=== PATIENT | male | born 1945 | race Caucasian/White ===

== ENCOUNTER 2017-04-26 05:59 | Day surgery (SDC) | payer MEDICARE, OTHER ==
[~2017-04-26] VITALS: Ht 193 cm; Wt 113.4 kg
--- NOTE | ~2017-04-26 | OP ---
Record Of Operation [facility] [address] [place]. [address] NAME: JUAN CADENA : 45 STATUS : [facility]#: [id number] AGE: 71 ADM/REG DATE : 04/26/17 MR#: [id number] REPORT SERV DATE: 04/26/17 DICTATED BY: LEI CASTANEDA DATE: 04/26/17 REPORT STATUS : Draft TRANSCRIBED BY: MODSanjiv DATE: 04/26/17 DATE OF PROCEDURE: 04/26/2017 PROCEDURE: Right upper extremity brachiocephalic arteriovenous fistula creation. PREOPERATIVE DIAGNOSIS: End-stage renal disease. POSTOPERATIVE DIAGNOSIS: End-stage renal disease. INDICATIONS FOR PROCEDURE: This is a very pleasant 71-year-old gentleman who presents with end-stage renal disease. He previously had a fistula on the left upper extremity. 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 The recommendation was made for creation of right upper extremity arteriovenous fistula and the procedure, risks, benefits, alternatives, and indications were discussed extensively with the patient. All questions were answered. Consent was signed and placed in the chart. DESCRIPTION OF PROCEDURE IN DETAIL: On 04/26/2017, the patient was taken to the operating theater and placed in supine position on the operating table. After the uneventful induction of monitored conscious analgesia, the right upper extremity was prepped and draped in the usual sterile fashion. A time-out was performed to identify the patient and proposed procedure to be performed. The entirety of the staff agreed and agreed to the proceed with the operation. An incision was made just above the antecubital fossa and carried down with electrocautery. The cephalic vein was identified and dissected free circumferentially, proximally, and distally. It was transected distally, and the distal portion was suture ligated and a clip was placed on it as well. The vein was injected with heparinized saline and mobilized medially. The patient was systemically heparinized. The brachial artery was dissected free proximally and distally and the vein was mobilized medially. The artery was controlled and longitudinal arteriotomy was made measuring approximately 4 mm in length. An end-to-side anastomosis was created with running 6-0 Prolene suture. This was allowed to flush prior to completion, and after completion, there was an excellent throw within the system. Hemostasis was achieved. The patient had biphasic radial signal as well. At this juncture, the deep dermis was closed with a running 3-0 Vicryl suture and the skin was closed with a running 4-0 Monocryl suture. Dermabond was applied over this. The patient was awakened from monitored conscious analgesia and taken to PACU in stable condition. There were no apparent intraoperative complications. The patient tolerated the procedure well. All counts were correct at the conclusion of the operation. Of note, 10 mL of Lidocaine was injected into the field during the operation. [facility]/MARIO ALBERTO Lei Castaneda DO / [id number] Record Of [address] [address] NAME: JUAN CADENA : 45 STATUS : [facility] PAT#: [id number] AGE: 71 ADM/REG DATE : 04/26/17 MR#: [id number] REPORT SERV DATE: 04/26/17 DICTATED BY: LEI CASTANEDA DATE: 04/26/17 REPORT STATUS : Draft TRANSCRIBED BY: MARIO ALBERTO DATE: 04/26/17 CC: DO KAMLESH Zhao TIUNDRA LESHAUN
[~2017-04-26 05:59] MED LIST: 8 HOUR650 MG PO; ALEVE220 MG PO; AMB10 PO; APRES25 PO; ASAB PO; CINNAMONPO PO; CIPRO; COREG3 PO; COZAAR100 MG PO; DSS PO; EFFEXXR75 PO; FERROUS SULF325 M1 PO; FIBERCON PO; FISH-EPA1000 MG PO; FLOMAX4 PO; FOSRENOL PO; GAS-X80 MG PO; HEPARIN INJ5000 U/ML SQ; HYT2 PO; L40 PO; LEVEMFLXPN SC; LEVEMIR SC; LIPITOR40 PO; LOVAZA1 GM PO; LYRICA50 PO; MAALOX PO; MAGOX4 PO; METANX PO; MIRALAXPKT PO; NEUR100 PO; NOVOLOG SC; PCET PO; PHILLIPS M800 MG/5 M PO; PHOSLO PO; PLAVIX PO; PLETAL50 PO; POTASSIUM; PRILOSEC40 MG PO; PROAMAT5 PO; PROBIOTIC PO; PROTONIX PO; RENAGEL800 PO; ROCALTROL 0.0.25 MCG PO; SENSIPAR30 MG PO; SODBICAR10 PO; STARLIX120 PO; TRAZ100 PO; TYLENOL ARTH650 MG PO; VYTORIN 10/40 T1 TAB PO; Z100 PO
[2017-04-26 06:46] LABS: BASOPHILS 0.7 %; BASOPHILS ABSOLUTE 0.07 10/3/uL (0.0-0.16); EOSINOPHILS 4.6 %; EOSINOPHILS ABSOLUTE 0.47 10/3/uL (0.0-0.53); HEMOGLOBIN 10.9 g/dL (13.6-17.8); IMMATURE GRANULOCYTES 0.2 %; IMMATURE GRANULOCYTES ABSOLUTE 0.02 10/3/uL (0.0-0.11); LYMPHOCYTES 19.4 %; LYMPHOCYTES ABSOLUTE 1.96 10/3/uL (0.67-4.30); MEAN PLATELET VOLUME 10.7 fL (9.2-13.0); MONOCYTES 10.1 %; MONOCYTES ABSOLUTE 1.02 10/3/uL (0.21-1.20); NEUTROPHILS ABSOLUTE 6.58 10/3/uL (2.02-8.40); RBC DISTRIBUTION WIDTH 16.8 % (12.0-16.0); RED CELL COUNT 3.44 10/6/uL (4.7-6.1); WHITE BLOOD CELLS 10.1 10/3/uL (4.5-10.5)
[2017-04-26 06:49] LABS: MANUAL DIFF NO %; MEAN CORPUS HGB CONC 32.1 g/dL (32.0-36.0); MEAN CORPUSCULAR HEMOGLOB 31.7 pg (26.0-34.0); MEAN CORPUSCULAR VOLUME 98.8 fL (80-100); PLATELET COUNT 218 10/3/uL (150-400)
[2017-04-26 06:53] LABS: INTERNATIONAL NORMAL RATI 1.2 UNITS (-); PROTIME (NOT ORD) 15.1 SEC (12.0-14.5)
[2017-04-26 06:59] LABS: BUN (BLOOD UREA NITROGEN) 49 MG/DL (6-23); CALCIUM, SERUM 7.3 MG/DL (8.5-10.4); CHLORIDE, SERUM 102 MMOL/L (96-112); CO2 (CARBON DIOXIDE) 24 MMOL/L (24-34); CREATININE 7.26 MG/DL (0.70-1.30); GFR AFRICAN AMERICAN 8 ML/MIN (>=60); GFR NON AFRICAN AMERICAN 7 ML/MIN (>=60); GLUCOSE, SERUM 150 MG/DL (60-99); POTASSIUM, SERUM 4.8 MMOL/L (3.5-5.3); SODIUM, SERUM 139 MMOL/L (135-148)
== END 2017-04-26 16:30 | disposition home or self-care (01) ==
LOC: SDC 05:59
PROVIDERS: Surgery Vascular Surgery
PROC: 03170ZD Bypass Right Brachial Artery to Upper Arm Vein, Open Approach (ICD-10-PCS; principal; 2017-04-26 07:45)
DX: E11.22 Type 2 diabetes mellitus with diabetic chronic kidney disease (principal); N18.6 End stage renal disease; E11.42 Type 2 diabetes mellitus with diabetic polyneuropathy; I25.2 Old myocardial infarction; I25.10 Atherosclerotic heart disease of native coronary artery without angina pectoris; E78.00 Pure hypercholesterolemia, unspecified; M10.9 Gout, unspecified; M41.9 Scoliosis, unspecified; M19.90 Unspecified osteoarthritis, unspecified site; K44.9 Diaphragmatic hernia without obstruction or gangrene; F32.9 Major depressive disorder, single episode, unspecified; H91.93 Unspecified hearing loss, bilateral; G47.30 Sleep apnea, unspecified; Z87.891 Personal history of nicotine dependence; Z88.8 Allergy status to other drugs, medicaments and biological substances; Z99.89 Dependence on other enabling machines and devices; Z99.2 Dependence on renal dialysis; Z90.49 Acquired absence of other specified parts of digestive tract; Z95.1 Presence of aortocoronary bypass graft; Z97.4 Presence of external hearing-aid; Z96.1 Presence of intraocular lens; Z98.41 Cataract extraction status, right eye; Z98.42 Cataract extraction status, left eye; Z79.4 Long term (current) use of insulin; Z79.82 Long term (current) use of aspirin; Z79.899 Other long term (current) drug therapy; Z98.890 Other specified postprocedural states
CPT/HCPCS: 36821; 71010; 80048; 82962; 85025; 85610; 93005; J0690; J3010